=== PATIENT | male | born 1955 | race Caucasian/White ===

== ENCOUNTER 2019-05-19 13:38 | Inpatient (IN) | payer MEDICARE, MEDICAID ==
[~2019-05-19] VITALS: Ht 180.3 cm; Wt 90.9 kg
[2019-05-19] MEDS ORDERED: OMEP20 PO (14:02)
[2019-05-19] MEDS ORDERED: DIPH50CA35 PO (14:03)
[2019-05-19] MEDS ORDERED: BUSP5TAB20 PO (14:04)
[2019-05-19] MEDS ORDERED: DULO40CA2 PO (14:08)
[2019-05-19] MEDS ORDERED: HYD25 PO (14:08)
[2019-05-19] MEDS ORDERED: METO50 PO (14:08)
[2019-05-19] MEDS ORDERED: HYDROCODONE/ACETAMINOPHEN 5-325 MG TABLET PO ONE (14:15)
[2019-05-19] MEDS ORDERED: MORPHINE SULFATE 4 MG/ML SYRINGE IM ONE (16:45)
[2019-05-19 17:05] LABS: EOSINOPHILS % (AUTO) 2.8 % (1.0-6.0); HEMATOCRIT 33.5 % (41-53); HEMOGLOBIN 10.9 g/dL (13.5-17.5); LYMPHOCYTES % (AUTO) 23.1 % (22.0-44.0); MEAN CORPUSCULAR HEMOGLOBIN 28.1 pg (26.0-34.0); MEAN CORPUSCULAR HGB CONC 32.4 G/dL (31.0-37.0); MEAN CORPUSCULAR VOLUME 87 fL (80-100); MONOCYTES # (AUTO) 0.9 K/uL (0.1-1.0); NEUTROPHILS # (AUTO) 5.6 K/uL (1.8-7.7); NEUTROPHILS % (AUTO) 63.1 % (40.0-70.0); PLATELET COUNT (AUTO) 463 K/uL (150-450); RED BLOOD CELL COUNT(AUTO) 3.86 MIL/uL (4.50-5.90); RED CELL DISTRIBUTION WIDTH 17.6 % (11.5-14.5)
[2019-05-19 17:17] LABS: ANION GAP 11 mmol/L (8-16); CALCIUM, TOTAL 9.3 mg/dL (8.8-10.5); CARBON DIOXIDE 24 mmol/L (22-29); CHLORIDE 106 mmol/L (98-107); CREATININE 1.16 mg/dL (0.60-1.30); GLOMERULAR FILTR. RATE CALC > 60 mL/min (>60); GLUCOSE,RANDOM 99 mg/dL (70-110); POTASSIUM 4.6 mmol/L (3.5-5.1); SODIUM SERUM 141 mmol/L (136-145); UREA NITROGEN, BLOOD 15 mg/dL (7-18)
[2019-05-19 17:26] LABS: ALANINE AMINOTRANSFERASE 11 U/L (12-78); ALBUMIN 3.1 g/dL (3.4-5.0); ALKALINE PHOSPHATASE 78 U/L (46-116); ASPARTATE AMINOTRANSFERASE 13 U/L (15-37); BILIRUBIN,TOTAL 0.3 mg/dL (0.1-1.0); TOTAL PROTEIN, SERUM 7.5 g/dL (6.4-8.2)
[2019-05-19] MEDS ORDERED: ACETAMINOPHEN 325 MG TABLET PO PRN (17:30)
[2019-05-19] MEDS ORDERED: ONDANSETRON HCL 4 MG/2 ML VIAL IVP PRN (17:30)
[2019-05-19] MEDS ORDERED: MAGNESIUM HYDROXIDE SUSPENSION 30 ML UDCUP PO PRN (17:30)
[2019-05-19] MEDS ORDERED: DEXTROSE 5%-0.45% SODIUM CHL 1,000 ML IV ONE (17:30)
[2019-05-19 17:41] LABS: INR 1.1 (0.9-1.1); PROTHROMBIN TIME 10.9 SEC (9.4-11.6)
[2019-05-19] MEDS: MORPHINE SULFATE 2 MG/ML SYRINGE IVP PRN ×2 (18:43→22:33)
[2019-05-19 19:08] VITALS: BP 128/75
[2019-05-19] MEDS: DOCUSATE SODIUM 100 MG CAPSULE PO SCH (20:14)
[2019-05-19] MEDS: OxyCODONE HCL/ACETAMINOPHEN 5-325 MG TABLET PO PRN (20:17)
[2019-05-19 23:27] VITALS: BP 123/78
[2019-05-20] MEDS: OxyCODONE HCL/ACETAMINOPHEN 5-325 MG TABLET PO PRN ×3 (00:40→17:50)
[2019-05-20] MEDS: MORPHINE SULFATE 2 MG/ML SYRINGE IVP PRN ×4 (04:08→20:09)
[2019-05-20 04:16] VITALS: BP 165/75
[2019-05-20 07:40] VITALS: BP 133/90
[2019-05-20] MEDS: FAMOTIDINE 20 MG TABLET PO SCH (09:16)
[2019-05-20] MEDS: MULTIVITAMINS WITH MINERALS, THERAPEUTIC TABLET PO SCH (09:16)
[2019-05-20] MEDS: DOCUSATE SODIUM 100 MG CAPSULE PO SCH ×2 (09:16→20:05)
[2019-05-20 12:13] VITALS: BP 132/94
[2019-05-20 15:53] VITALS: BP 150/87
[2019-05-20 20:40] VITALS: BP 137/92
[2019-05-21] VITALS (7 sets, daily range): BP systolic 124–142; BP diastolic 78–93
[2019-05-21] MEDS: MORPHINE SULFATE 2 MG/ML SYRINGE IVP PRN (06:41)
[2019-05-21] MEDS: DOCUSATE SODIUM 100 MG CAPSULE PO SCH ×2 (07:36→19:57)
[2019-05-21] MEDS: MULTIVITAMINS WITH MINERALS, THERAPEUTIC TABLET PO SCH (07:36)
[2019-05-21] MEDS: FAMOTIDINE 20 MG TABLET PO SCH ×2 (07:36→19:56)
[2019-05-21 07:46] LABS: GLUCOMETER DEV NAME(LOC) 6N.2; GLUCOSE,POINT OF CARE 119 MG/DL (70-110)
[2019-05-21] MEDS ORDERED: VANCOMYCIN HCL 1 GM/VIAL ONE (10:13)
[2019-05-21] MEDS ORDERED: LIDOCAINE 1%/EPI 1:200,000/PF 30 ML VIAL ONE (10:13)
[2019-05-21] MEDS ORDERED: BUPIVACAINE HCL/PF 0.25% 30 ML VIAL ONE (10:13)
[2019-05-21] MEDS ORDERED: SODIUM CL IRRIG SOLN BAG 0 ML IRRIG ONE (10:14)
[2019-05-21] MEDS ORDERED: RINGERS SOLUTION,LACTATED 1,000 ML IV ONE ×2 (11:45→11:48)
[2019-05-21] MEDS ORDERED: BUPIVACAINE 0.25%/EPI 1:200,000/PF 10 ML VIAL ONE ×2 (11:58)
[2019-05-21] MEDS ORDERED: ROCURONIUM BROMIDE 10 MG/ML 5 ML VIAL IVP ONE (12:00)
[2019-05-21] MEDS ORDERED: PHENYLEPHRINE HCL 10 MG/ML VIAL IVP ONE (12:00)
[2019-05-21] MEDS ORDERED: PROPOFOL 1% 20 ML VIAL IVP ONE (12:00)
[2019-05-21] MEDS ORDERED: FentaNYL CITRATE-PF 100 MCG/2 ML VIAL IV ONE (12:00)
[2019-05-21] MEDS ORDERED: ACETAMINOPHEN 1000 MG/ISO-OSM 100 ML IV ONE (14:45)
[2019-05-21] MEDS ORDERED: MIDAZOLAM HCL 2 MG/2 ML VIAL IVP PRN (14:45)
[2019-05-21] MEDS ORDERED: HYDROmorphone 2 MG/ML SYRINGE IVP PRN ×2 (14:45)
[2019-05-21] MEDS ORDERED: MEPERIDINE-PF 25 MG/ML VIAL ONE (16:31)
[2019-05-21] MEDS ORDERED: SODIUM CHLORIDE 0.9% 1,000 ML ONE (16:32)
[2019-05-21] MEDS ORDERED: HYDROmorphone 2 MG/ML SYRINGE ONE (16:50)
[2019-05-21] MEDS: HYDROmorphone 2 MG/ML SYRINGE IVP PRN ×3 (16:52→17:45)
[2019-05-21] MEDS ORDERED: LORazepam 2 MG/ML VIAL ONE (16:55)
[2019-05-21] MEDS ORDERED: MEPERIDINE-PF 25 MG/ML VIAL IVP ONE (17:00)
[2019-05-21] MEDS ORDERED: LORazepam 2 MG/ML VIAL IM ONE (17:00)
[2019-05-21] MEDS ORDERED: FentaNYL CITRATE-PF 100 MCG/2 ML VIAL ONE (17:21)
[2019-05-21] MEDS: FentaNYL CITRATE-PF 100 MCG/2 ML VIAL IVP PRN ×2 (17:25→17:33)
[2019-05-21] MEDS ORDERED: LORazepam 2 MG/ML VIAL IVP ONE (17:30)
[2019-05-21] MEDS ORDERED: METOPROLOL TARTRATE 5 MG/5 ML VIAL IVP STA (18:07)
[2019-05-21] MEDS ORDERED: DiphenhydrAMINE HCL 50 MG/ML VIAL IVP STA (18:09)
[2019-05-21] MEDS ORDERED: METOPROLOL TARTRATE 5 MG/5 ML VIAL ONE (18:12)
[2019-05-21 18:13] LABS: GLUCOMETER DEV NAME(LOC) SDS.; GLUCOSE,POINT OF CARE 144 MG/DL (70-110)
[2019-05-21] MEDS ORDERED: DiphenhydrAMINE HCL 50 MG/ML VIAL ONE (18:15)
[2019-05-21 18:36] LABS: BASOPHILS % (AUTO) 0.6 % (0.0-2.0); EOSINOPHILS % (AUTO) 0.5 % (1.0-6.0); HEMOGLOBIN 11.5 g/dL (13.5-17.5); LYMPHOCYTES # (AUTO) 1.5 K/uL (1.0-4.8); LYMPHOCYTES % (AUTO) 11.3 % (22.0-44.0); MEAN CORPUSCULAR HEMOGLOBIN 27.7 pg (26.0-34.0); MEAN CORPUSCULAR HGB CONC 31.9 G/dL (31.0-37.0); MEAN CORPUSCULAR VOLUME 87 fL (80-100); MONOCYTES # (AUTO) 1.2 K/uL (0.1-1.0); MONOCYTES % (AUTO) 8.9 % (2.0-9.0); NEUTROPHILS # (AUTO) 10.5 K/uL (1.8-7.7); NEUTROPHILS % (AUTO) 78.7 % (40.0-70.0); PLATELET COUNT (AUTO) 598 K/uL (150-450); RED BLOOD CELL COUNT(AUTO) 4.14 MIL/uL (4.50-5.90); RED CELL DISTRIBUTION WIDTH 17.7 % (11.5-14.5)
[2019-05-21] MEDS ORDERED: DiphenhydrAMINE HCL 50 MG/ML VIAL IVP PRN (19:30)
[2019-05-21] MEDS ORDERED: BISACODYL 10 MG RECTAL RECTAL SUPPOSITORY PR PRN (19:30)
[2019-05-21] MEDS ORDERED: NALOXONE HCL 0.4 MG/ML VIAL IVP PRN (19:30)
[2019-05-21] MEDS ORDERED: ACETAMINOPHEN 325 MG TABLET PO PRN (19:30)
[2019-05-21] MEDS ORDERED: OxyCODONE HCL/ACETAMINOPHEN 5-325 MG TABLET PO PRN (19:30)
[2019-05-21] MEDS: OxyCODONE HCL/ACETAMINOPHEN 5-325 MG TABLET PO PRN ×2 (19:56→23:57)
[2019-05-21 20:54] LABS: CALCIUM, TOTAL 9.6 mg/dL (8.8-10.5); CREATININE 1.46 mg/dL (0.60-1.30); POTASSIUM 4.3 mmol/L (3.5-5.1)
[2019-05-21] MEDS ORDERED: SODIUM CHLORIDE 0.9% 1,000 ML IV ONE (23:45)
[2019-05-22] MEDS: IBUPROFEN 400 MG TABLET PO PRN ×2 (01:00→13:09)
[2019-05-22 05:11] VITALS: BP 137/83
[2019-05-22 07:31] VITALS: BP 143/82
[2019-05-22] MEDS: MULTIVITAMINS WITH MINERALS, THERAPEUTIC TABLET PO SCH ×2 (08:03→09:42)
[2019-05-22] MEDS: RIVAROXABAN 10 MG TABLET PO SCH (08:04)
[2019-05-22] MEDS: FAMOTIDINE 20 MG TABLET PO SCH ×2 (08:04→20:17)
[2019-05-22] MEDS: DOCUSATE SODIUM 100 MG CAPSULE PO SCH ×2 (08:04→20:17)
[2019-05-22] MEDS: ASCORBIC ACID 500 MG TABLET PO SCH (08:05)
[2019-05-22] MEDS: CALCIUM OYSTER SHELL 250 MG-VIT D3 125 UNITS TABLET PO SCH (08:05)
[2019-05-22] MEDS: OxyCODONE HCL/ACETAMINOPHEN 5-325 MG TABLET PO PRN ×3 (08:06→23:58)
[2019-05-22 11:07] VITALS: BP 131/86
[2019-05-22 15:27] VITALS: BP 126/86
[2019-05-22] MEDS: DULoxetine HCL 30 MG CAPSULE PO SCH (17:29)
[2019-05-22 19:35] VITALS: BP 142/80
[2019-05-22] MEDS: BusPIRone HCL 5 MG TABLET PO SCH (20:17)
[2019-05-22 23:34] VITALS: BP 137/86
[2019-05-23 05:10] VITALS: BP 149/91
[2019-05-23] MEDS: OxyCODONE HCL/ACETAMINOPHEN 5-325 MG TABLET PO PRN ×4 (05:24→19:47)
[2019-05-23 06:31] LABS: GLUCOMETER DEV NAME(LOC) 6S.1; GLUCOSE,POINT OF CARE 163 MG/DL (70-110)
[2019-05-23 07:42] VITALS: BP 133/84
[2019-05-23] MEDS: ASCORBIC ACID 500 MG TABLET PO SCH (08:42)
[2019-05-23] MEDS: MULTIVITAMINS WITH MINERALS, THERAPEUTIC TABLET PO SCH ×2 (08:42→09:00)
[2019-05-23] MEDS: BusPIRone HCL 5 MG TABLET PO SCH ×3 (08:42→19:47)
[2019-05-23] MEDS: FAMOTIDINE 20 MG TABLET PO SCH ×2 (08:43→19:47)
[2019-05-23] MEDS: DULoxetine HCL 30 MG CAPSULE PO SCH (08:43)
[2019-05-23] MEDS: DOCUSATE SODIUM 100 MG CAPSULE PO SCH ×2 (08:43→19:47)
[2019-05-23] MEDS: CALCIUM OYSTER SHELL 250 MG-VIT D3 125 UNITS TABLET PO SCH (08:48)
[2019-05-23 10:17] LABS: BASOPHILS % (AUTO) 0.9 % (0.0-2.0); EOSINOPHILS % (AUTO) 1.3 % (1.0-6.0); HEMATOCRIT 35.3 % (41-53); HEMOGLOBIN 11.5 g/dL (13.5-17.5); LYMPHOCYTES # (AUTO) 1.4 K/uL (1.0-4.8); LYMPHOCYTES % (AUTO) 12.2 % (22.0-44.0); MEAN CORPUSCULAR HGB CONC 32.5 G/dL (31.0-37.0); MEAN CORPUSCULAR VOLUME 86 fL (80-100); MONOCYTES # (AUTO) 1.4 K/uL (0.1-1.0); MONOCYTES % (AUTO) 12.2 % (2.0-9.0); NEUTROPHILS # (AUTO) 8.5 K/uL (1.8-7.7); NEUTROPHILS % (AUTO) 73.4 % (40.0-70.0); PLATELET COUNT (AUTO) 573 K/uL (150-450); RED CELL DISTRIBUTION WIDTH 17.2 % (11.5-14.5)
[2019-05-23 10:23] LABS: ANION GAP 12 mmol/L (8-16); CALCIUM, TOTAL 9.9 mg/dL (8.8-10.5); CARBON DIOXIDE 23 mmol/L (22-29); CHLORIDE 102 mmol/L (98-107); CREATININE 0.96 mg/dL (0.60-1.30); GLOMERULAR FILTR. RATE CALC > 60 mL/min (>60); GLUCOSE,RANDOM 170 mg/dL (70-110); POTASSIUM 5.2 mmol/L (3.5-5.1); SODIUM SERUM 137 mmol/L (136-145); UREA NITROGEN, BLOOD 24 mg/dL (7-18)
[2019-05-23 11:27] VITALS: BP 130/85
[2019-05-23 12:14] LABS: GLUCOMETER DEV NAME(LOC) 6S.1; GLUCOSE,POINT OF CARE 139 MG/DL (70-110)
[2019-05-23 15:09] VITALS: BP 136/89
[2019-05-23 15:54] LABS: APPEARANCE,URINE CLOUDY (CLEAR); BILIRUBIN,URINE NEGATIVE (NEGATIVE); GLUCOSE, URINE (UA) NEGATIVE (NEGATIVE); KETONES,URINE NEGATIVE (NEGATIVE); LEUKOCYTE ESTERASE ,URINE LARGE (NEGATIVE); OCCULT BLOOD,URINE LARGE (NEGATIVE); PROTEIN,URINE POS 1+ (NEGATIVE); UROBILINOGEN,URINE 0.2 mg/dL (<=1.0)
[2019-05-23 16:10] LABS: BACTERIA,URINE Many /HPF (None Seen); NITRATE,URINE POSITIVE (NEGATIVE); RBC,URINE 26-50 /HPF (0-2); SQUAMOUS EPITHELIAL CELL,UR Few /LPF (None Seen); WBC,URINE 51-100 /HPF (0-5)
[2019-05-23] MEDS: RIVAROXABAN 10 MG TABLET PO SCH (17:55)
[2019-05-23] MEDS: CefTRIAXone 1 GM/DEXTROSE 50 ML IV SCH (18:14)
[2019-05-23 18:39] LABS: GLUCOMETER DEV NAME(LOC) 6S.1; GLUCOSE,POINT OF CARE 137 MG/DL (70-110)
[2019-05-23 19:45] VITALS: BP 140/87
[2019-05-23 23:28] LABS: GLUCOMETER DEV NAME(LOC) 6S.1; GLUCOSE,POINT OF CARE 145 MG/DL (70-110)
[2019-05-24] VITALS (7 sets, daily range): BP systolic 118–135; BP diastolic 72–82
[2019-05-24] MEDS: OxyCODONE HCL/ACETAMINOPHEN 5-325 MG TABLET PO PRN ×3 (00:18→20:13)
[2019-05-24 06:53] LABS: GLUCOMETER DEV NAME(LOC) 6S.1; GLUCOSE,POINT OF CARE 148 MG/DL (70-110)
[2019-05-24] MEDS: ASCORBIC ACID 500 MG TABLET PO SCH (08:44)
[2019-05-24] MEDS: IBUPROFEN 400 MG TABLET PO PRN ×2 (08:44→17:01)
[2019-05-24] MEDS: DOCUSATE SODIUM 100 MG CAPSULE PO SCH ×2 (08:44→20:13)
[2019-05-24] MEDS: DULoxetine HCL 30 MG CAPSULE PO SCH (08:44)
[2019-05-24] MEDS: CALCIUM OYSTER SHELL 250 MG-VIT D3 125 UNITS TABLET PO SCH (08:44)
[2019-05-24] MEDS: BusPIRone HCL 5 MG TABLET PO SCH ×3 (08:44→20:13)
[2019-05-24] MEDS: MULTIVITAMINS WITH MINERALS, THERAPEUTIC TABLET PO SCH ×2 (08:44→08:45)
[2019-05-24] MEDS: FAMOTIDINE 20 MG TABLET PO SCH ×2 (08:44→20:13)
[2019-05-24 09:41] LABS: BASOPHILS % (AUTO) 0.6 % (0.0-2.0); HEMATOCRIT 34.3 % (41-53); HEMOGLOBIN 11.3 g/dL (13.5-17.5); LYMPHOCYTES # (AUTO) 1.3 K/uL (1.0-4.8); LYMPHOCYTES % (AUTO) 12.1 % (22.0-44.0); MEAN CORPUSCULAR HEMOGLOBIN 28.2 pg (26.0-34.0); MEAN CORPUSCULAR HGB CONC 32.9 G/dL (31.0-37.0); MEAN CORPUSCULAR VOLUME 86 fL (80-100); MONOCYTES # (AUTO) 0.9 K/uL (0.1-1.0); MONOCYTES % (AUTO) 8.4 % (2.0-9.0); NEUTROPHILS # (AUTO) 8.1 K/uL (1.8-7.7); NEUTROPHILS % (AUTO) 76.9 % (40.0-70.0); PLATELET COUNT (AUTO) 663 K/uL (150-450)
[2019-05-24 09:52] LABS: ANION GAP 11 mmol/L (8-16); CALCIUM, TOTAL 9.7 mg/dL (8.8-10.5); CARBON DIOXIDE 26 mmol/L (22-29); CHLORIDE 103 mmol/L (98-107); CREATININE 1.02 mg/dL (0.60-1.30); GLOMERULAR FILTR. RATE CALC > 60 mL/min (>60); GLUCOSE,RANDOM 135 mg/dL (70-110); POTASSIUM 4.7 mmol/L (3.5-5.1); SODIUM SERUM 140 mmol/L (136-145); UREA NITROGEN, BLOOD 22 mg/dL (7-18)
[2019-05-24] MEDS: RIVAROXABAN 10 MG TABLET PO SCH (16:58)
[2019-05-24] MEDS: CefTRIAXone 1 GM/DEXTROSE 50 ML IV SCH (16:58)
[2019-05-25 04:00] VITALS: BP 126/75
[2019-05-25] MEDS: OxyCODONE HCL/ACETAMINOPHEN 5-325 MG TABLET PO PRN ×3 (04:28→14:23)
[2019-05-25 08:08] VITALS: BP 120/79
[2019-05-25] MEDS: ASCORBIC ACID 500 MG TABLET PO SCH (08:12)
[2019-05-25] MEDS: BusPIRone HCL 5 MG TABLET PO SCH (08:13)
[2019-05-25] MEDS: DOCUSATE SODIUM 100 MG CAPSULE PO SCH (08:13)
[2019-05-25] MEDS: DULoxetine HCL 30 MG CAPSULE PO SCH (08:13)
[2019-05-25] MEDS: CALCIUM OYSTER SHELL 250 MG-VIT D3 125 UNITS TABLET PO SCH (08:13)
[2019-05-25] MEDS: MULTIVITAMINS WITH MINERALS, THERAPEUTIC TABLET PO SCH ×2 (08:13→09:00)
[2019-05-25] MEDS: FAMOTIDINE 20 MG TABLET PO SCH (08:13)
[2019-05-25 11:40] VITALS: BP 115/68
== END 2019-05-25 15:15 | DRG 493 ==
LOC: EMS 13:39 → 6N 17:31
PROVIDERS: ADMIT Internal Medicine; ATTEND Internal Medicine
PROC: 0PSG04Z Reposition Left Humeral Shaft with Internal Fixation Device, Open Approach (ICD-10-PCS; principal; 2019-05-21 13:00)
DX: S42.232A 3-part fracture of surgical neck of left humerus, initial encounter for closed fracture (principal); N39.0 Urinary tract infection, site not specified; S42.302A Unspecified fracture of shaft of humerus, left arm, initial encounter for closed fracture; N13.9 Obstructive and reflux uropathy, unspecified; F80.82 Social pragmatic communication disorder; W18.39XA Other fall on same level, initial encounter; F29 Unspecified psychosis not due to a substance or known physiological condition; I10 Essential (primary) hypertension; J44.9 Chronic obstructive pulmonary disease, unspecified; E11.40 Type 2 diabetes mellitus with diabetic neuropathy, unspecified; Z93.3 Colostomy status; Z82.49 Family history of ischemic heart disease and other diseases of the circulatory system; Y93.89 Activity, other specified; Y92.89 Other specified places as the place of occurrence of the external cause; Y99.8 Other external cause status
CPT/HCPCS: 73200; 83036; 87081; 87086; 93005; 97116; 97162; 97166; 97167; 97530; 97535; J0690; J0696; J1170; J1200; J2060; J2175; J2270; J2370; J2704; J3010; J3370; J3490; J7030; J7120

== ENCOUNTER 2019-10-18 20:39 | Emergency (ER) | payer MEDICARE, MEDICAID ==
[~2019-10-18] VITALS: Ht 180.3 cm; Wt 79.5 kg
[~2019-10-18 20:39] MED LIST: BUSP5TAB20 PO; DIPH50CA35 PO; DULO40CA2 PO; HYD25 PO; METO50 PO; OMEP20 PO
[2019-10-18 21:02] LABS: GLUCOSE,POINT OF CARE 117 MG/DL (70-110)
[2019-10-18 21:51] LABS: ANION GAP 12 mmol/L (8-16); CALCIUM, TOTAL 9.4 mg/dL (8.8-10.5); CARBON DIOXIDE 23 mmol/L (22-29); CHLORIDE 102 mmol/L (98-107); CREATININE 1.53 mg/dL (0.60-1.30); GLOMERULAR FILTR. RATE CALC 46 mL/min (>60); GLUCOSE,RANDOM 126 mg/dL (70-110); POTASSIUM 3.8 mmol/L (3.5-5.1); SODIUM SERUM 137 mmol/L (136-145); UREA NITROGEN, BLOOD 13 mg/dL (7-18)
[2019-10-18 21:57] LABS: ALANINE AMINOTRANSFERASE 24 U/L (12-78); ALBUMIN 3.5 g/dL (3.4-5.0); ALKALINE PHOSPHATASE 65 U/L (46-116); ASPARTATE AMINOTRANSFERASE 19 U/L (15-37); BILIRUBIN,TOTAL 0.6 mg/dL (0.1-1.0); TOTAL PROTEIN, SERUM 7.3 g/dL (6.4-8.2)
[2019-10-18 22:19] LABS: BASOPHILS % (AUTO) 0.4 % (0.0-2.0); EOSINOPHILS % (AUTO) 1.4 % (1.0-6.0); HEMATOCRIT 38.9 % (41-53); HEMOGLOBIN 12.6 g/dL (13.5-17.5); LYMPHOCYTES # (AUTO) 1.8 K/uL (1.0-4.8); MEAN CORPUSCULAR HEMOGLOBIN 29.7 pg (26.0-34.0); MEAN CORPUSCULAR HGB CONC 32.5 G/dL (31.0-37.0); MEAN CORPUSCULAR VOLUME 91 fL (80-100); MONOCYTES # (AUTO) 0.8 K/uL (0.1-1.0); MONOCYTES % (AUTO) 10.3 % (2.0-9.0); NEUTROPHILS # (AUTO) 4.8 K/uL (1.8-7.7); NEUTROPHILS % (AUTO) 63.9 % (40.0-70.0); PLATELET COUNT (AUTO) 239 K/uL (150-450); RED BLOOD CELL COUNT(AUTO) 4.26 MIL/uL (4.50-5.90); RED CELL DISTRIBUTION WIDTH 17.9 % (11.5-14.5)
[2019-10-18 22:32] LABS: AMPHET/METH SCREEN,URINE NEGATIVE (NEGATIVE); BARBITURATE SCREEN, URINE NEGATIVE (NEGATIVE); BENZODIAZEPINES SCREEN,URINE NEGATIVE (NEGATIVE); CANNABINOID SCREEN,URINE POSITIVE (NEGATIVE); COCAINE SCREEN,URINE NEGATIVE (NEGATIVE); METHADONE SCREEN, URINE NEGATIVE (NEGATIVE); OPIATE SCREEN,URINE NEGATIVE (NEGATIVE)
[2019-10-18 22:34] LABS: PHENCYCLIDINE SCREEN,URINE NEGATIVE (NEGATIVE)
[2019-10-18 23:00] LABS: SALICYLATE 6.5 mg/dL (2.8-20.0)
[2019-10-18 23:48] LABS: ACETAMINOPHEN < 2 mcg/mL (10-30)
[2019-10-19] MEDS ORDERED: LORazepam 1 MG TABLET PO ONE (01:30)
[2019-10-19] MEDS ORDERED: QUEtiapine FUMARATE 100 MG TABLET PO PRN (03:15)
[2019-10-19] MEDS ORDERED: ZOLPIDEM TARTRATE 10 MG TABLET PO PRN (03:15)
[2019-10-19] MEDS ORDERED: LORazepam 2 MG TABLET PO PRN (03:15)
[2019-10-19 09:08] LABS: GLUCOSE,POINT OF CARE 130 MG/DL (70-110)
[2019-10-19 18:50] VITALS: BP 135/74
== END 2019-10-19 20:37 | disposition short-term general hospital (02) ==
LOC: EMS 20:39
DX: R45.851 Suicidal ideations (principal); I10 Essential (primary) hypertension; E11.9 Type 2 diabetes mellitus without complications; J44.9 Chronic obstructive pulmonary disease, unspecified; Z88.8 Allergy status to other drugs, medicaments and biological substances; Z79.899 Other long term (current) drug therapy; Z20.828 Contact with and (suspected) exposure to other viral communicable diseases
CPT/HCPCS: 36415; 80053; 80307; 82962; 85025; 87426; 99285; G0480; G0481

== ENCOUNTER 2019-10-27 11:33 | Emergency (ER) | payer MEDICARE, OTHER ==
[~2019-10-27] VITALS: Ht 185.4 cm; Wt 79.5 kg
[2019-10-27 12:29] LABS: BASOPHILS % (AUTO) 0.5 % (0.0-2.0); EOSINOPHILS % (AUTO) 0.6 % (1.0-6.0); HEMATOCRIT 38.1 % (41-53); HEMOGLOBIN 12.7 g/dL (13.5-17.5); LYMPHOCYTES # (AUTO) 1.5 K/uL (1.0-4.8); LYMPHOCYTES % (AUTO) 20.9 % (22.0-44.0); MEAN CORPUSCULAR HEMOGLOBIN 30.5 pg (26.0-34.0); MEAN CORPUSCULAR HGB CONC 33.5 G/dL (31.0-37.0); MEAN CORPUSCULAR VOLUME 91 fL (80-100); MONOCYTES # (AUTO) 0.5 K/uL (0.1-1.0); MONOCYTES % (AUTO) 7.4 % (2.0-9.0); NEUTROPHILS # (AUTO) 5.1 K/uL (1.8-7.7); NEUTROPHILS % (AUTO) 70.6 % (40.0-70.0); PLATELET COUNT (AUTO) 454 K/uL (150-450); RED BLOOD CELL COUNT(AUTO) 4.17 MIL/uL (4.50-5.90); RED CELL DISTRIBUTION WIDTH 17.6 % (11.5-14.5)
[2019-10-27 12:37] LABS: ANION GAP 14 mmol/L (8-16); CALCIUM, TOTAL 9.1 mg/dL (8.8-10.5); CARBON DIOXIDE 21 mmol/L (22-29); CHLORIDE 102 mmol/L (98-107); CREATININE 1.11 mg/dL (0.60-1.30); GLOMERULAR FILTR. RATE CALC > 60 mL/min (>60); GLUCOSE,RANDOM 95 mg/dL (70-110); POTASSIUM 3.6 mmol/L (3.5-5.1); SODIUM SERUM 137 mmol/L (136-145); UREA NITROGEN, BLOOD 14 mg/dL (7-18)
[2019-10-27 12:46] LABS: ALANINE AMINOTRANSFERASE 21 U/L (12-78); ALBUMIN 3.5 g/dL (3.4-5.0); ALKALINE PHOSPHATASE 59 U/L (46-116); ASPARTATE AMINOTRANSFERASE 15 U/L (15-37); BILIRUBIN,TOTAL 0.6 mg/dL (0.1-1.0); TOTAL PROTEIN, SERUM 7.4 g/dL (6.4-8.2)
[2019-10-27 16:00] VITALS: BP 126/71
== END 2019-10-27 16:28 | disposition home or self-care (01) ==
LOC: EMS 11:36
DX: F31.9 Bipolar disorder, unspecified (principal); E11.9 Type 2 diabetes mellitus without complications; I10 Essential (primary) hypertension; J44.9 Chronic obstructive pulmonary disease, unspecified; Z79.899 Other long term (current) drug therapy
CPT/HCPCS: 36415; 80053; 85025; 99284; G0480

== ENCOUNTER 2019-11-16 18:16 | Inpatient (IN) | payer MEDICARE, MEDICAID ==
[~2019-11-16] VITALS: Ht 180.3 cm; Wt 79.1 kg
[2019-11-16] MEDS ORDERED: MECL-169 PO (20:27)
[2019-11-16] MEDS ORDERED: IBUP-1506 PO (20:27)
[2019-11-16] MEDS ORDERED: ZOLP-280 PO (20:27)
[2019-11-16] MEDS ORDERED: CLOB60CR4 TP (20:27)
[2019-11-16] MEDS ORDERED: QUET200T5 PO (20:27)
[2019-11-16] MEDS ORDERED: HYDR50CA9 PO (20:27)
[2019-11-16] MEDS ORDERED: LEVO25TA9 PO (20:27)
[2019-11-16 20:43] LABS: BASOPHILS % (AUTO) 0.5 % (0.0-2.0); EOSINOPHILS % (AUTO) 0.8 % (1.0-6.0); HEMATOCRIT 36.9 % (41-53); HEMOGLOBIN 12.2 g/dL (13.5-17.5); LYMPHOCYTES # (AUTO) 1.1 K/uL (1.0-4.8); LYMPHOCYTES % (AUTO) 13.3 % (22.0-44.0); MEAN CORPUSCULAR HEMOGLOBIN 30.3 pg (26.0-34.0); MEAN CORPUSCULAR HGB CONC 33.1 G/dL (31.0-37.0); MEAN CORPUSCULAR VOLUME 92 fL (80-100); MONOCYTES # (AUTO) 0.8 K/uL (0.1-1.0); MONOCYTES % (AUTO) 9.5 % (2.0-9.0); NEUTROPHILS # (AUTO) 6.1 K/uL (1.8-7.7); NEUTROPHILS % (AUTO) 75.9 % (40.0-70.0); PLATELET COUNT (AUTO) 316 K/uL (150-450); RED BLOOD CELL COUNT(AUTO) 4.02 MIL/uL (4.50-5.90); RED CELL DISTRIBUTION WIDTH 17.9 % (11.5-14.5)
[2019-11-16 20:53] LABS: ANION GAP 0 mmol/L (8-16); CALCIUM, TOTAL 8.8 mg/dL (8.8-10.5); CARBON DIOXIDE 25 mmol/L (22-29); CHLORIDE 106 mmol/L (98-107); CREATININE 1.15 mg/dL (0.60-1.30); GLOMERULAR FILTR. RATE CALC > 60 mL/min (>60); GLUCOSE,RANDOM 105 mg/dL (70-110); POTASSIUM 3.5 mmol/L (3.5-5.1); SODIUM SERUM 131 mmol/L (136-145); UREA NITROGEN, BLOOD 10 mg/dL (7-18)
[2019-11-16 20:58] LABS: ALANINE AMINOTRANSFERASE 43 U/L (12-78); ALBUMIN 3.1 g/dL (3.4-5.0); ALKALINE PHOSPHATASE 64 U/L (46-116); ASPARTATE AMINOTRANSFERASE 38 U/L (15-37); BILIRUBIN,TOTAL 0.6 mg/dL (0.1-1.0); TOTAL PROTEIN, SERUM 6.4 g/dL (6.4-8.2)
[2019-11-16 22:12] LABS: COVID AG,FIA SOURCE NASOPHARYNGEAL
[2019-11-16] MEDS ORDERED: LORazepam 2 MG TABLET PO PRN (22:15)
[2019-11-16] MEDS ORDERED: QUEtiapine FUMARATE 100 MG TABLET PO PRN (22:15)
[2019-11-16] MEDS ORDERED: CloNIDine HCL 0.1 MG TABLET PO PRN (23:15)
[2019-11-16] MEDS ORDERED: MAGNESIUM HYDROXIDE SUSPENSION 30 ML UDCUP PO PRN (23:15)
[2019-11-16] MEDS ORDERED: ACETAMINOPHEN 325 MG TABLET PO PRN (23:15)
[2019-11-16] MEDS ORDERED: ONDANSETRON HCL 4 MG TABLET PO PRN (23:15)
[2019-11-16] MEDS ORDERED: PETROLATUM,WHITE 28 GM JELLY TP PRN (23:15)
[2019-11-16] MEDS ORDERED: MAG HYDROX/AL HYDROX/SIMETH ES 30 ML SUSPENSION UDCUP PO PRN (23:15)
[2019-11-16] MEDS ORDERED: GuaiFENesin/D-METHORPHAN [SUGAR-FREE] 200-20MG/10 ML SYRUP UDCUP PO PRN (23:15)
[2019-11-16] MEDS ORDERED: IBUPROFEN 400 MG TABLET PO PRN (23:15)
[2019-11-16] MEDS ORDERED: ALBUTEROL SULFATE HFA 90 MCG/PUFF 8 GM INHALER IH PRN (23:15)
[2019-11-16] MEDS ORDERED: NICOTINE 14 MG/24 HOUR PATCH TD PRN (23:15)
[2019-11-16] MEDS ORDERED: DOCUSATE SODIUM 100 MG CAPSULE PO PRN (23:15)
[2019-11-16] MEDS ORDERED: LOPERAMIDE HCL 2 MG CAPSULE PO PRN (23:15)
[2019-11-17] MEDS: ZOLPIDEM TARTRATE 10 MG TABLET PO PRN (00:41)
[2019-11-17 00:57] VITALS: BP 112/70
[2019-11-17] MEDS ORDERED: INFLUENZA VIRUS VACCINE QVS 2020-21 (6MO+)/PF 60 MCG/0.5 ML SYRINGE IM ONE (01:30)
[2019-11-17 06:11] LABS: GLUCOMETER DEV NAME(LOC) 3E.I 2; GLUCOSE,POINT OF CARE 114 MG/DL (70-110)
[2019-11-17] MEDS: LEVOTHYROXINE SODIUM 25 MCG TABLET PO SCH (06:49)
[2019-11-17 07:15] LABS: CHOL/HDL RATIO 3.2 (4.2-7.3)
[2019-11-17] MEDS ORDERED: POTASSIUM CHLORIDE 20 MEQ ER TABLET PO ONE (09:00)
[2019-11-17] MEDS: MECLIZINE HCL 25 MG TABLET PO SCH ×2 (09:14→16:31)
[2019-11-17 09:33] VITALS: BP 120/79
[2019-11-17 16:16] VITALS: BP 119/70
[2019-11-17] MEDS: SODIUM CHLORIDE 1 GM TABLET PO SCH (16:30)
[2019-11-17] MEDS: BusPIRone HCL 5 MG TABLET PO SCH (16:31)
[2019-11-17] MEDS: QUEtiapine FUMARATE 200 MG ER TABLET PO SCH (21:01)
[2019-11-18 02:49] VITALS: BP 137/74
[2019-11-18] MEDS: LEVOTHYROXINE SODIUM 25 MCG TABLET PO SCH (06:53)
[2019-11-18] MEDS: MULTIVITAMINS WITH MINERALS, THERAPEUTIC TABLET PO SCH (08:45)
[2019-11-18] MEDS: DULoxetine HCL 60 MG CAPSULE PO SCH (08:45)
[2019-11-18] MEDS: MECLIZINE HCL 25 MG TABLET PO SCH ×2 (08:45→16:13)
[2019-11-18] MEDS: BusPIRone HCL 5 MG TABLET PO SCH ×3 (08:45→16:13)
[2019-11-18] MEDS: SODIUM CHLORIDE 1 GM TABLET PO SCH ×2 (08:45→16:13)
[2019-11-18 09:05] VITALS: BP 87/56
[2019-11-18 16:22] VITALS: BP 118/69
[2019-11-18] MEDS: CLOBETASOL 0.05% 60 GM CREAM TP PRN (19:53)
[2019-11-18] MEDS: QUEtiapine FUMARATE 200 MG ER TABLET PO SCH (20:05)
[2019-11-18] MEDS: ZOLPIDEM TARTRATE 10 MG TABLET PO PRN (20:32)
[2019-11-19 03:39] VITALS: BP 111/84
[2019-11-19] MEDS: LEVOTHYROXINE SODIUM 25 MCG TABLET PO SCH (06:36)
[2019-11-19 08:35] VITALS: BP 101/54
[2019-11-19] MEDS: SODIUM CHLORIDE 1 GM TABLET PO SCH (09:32)
[2019-11-19] MEDS: MULTIVITAMINS WITH MINERALS, THERAPEUTIC TABLET PO SCH (09:32)
[2019-11-19] MEDS: MECLIZINE HCL 25 MG TABLET PO SCH ×2 (09:32→16:32)
[2019-11-19] MEDS: BusPIRone HCL 5 MG TABLET PO SCH ×3 (09:32→16:32)
[2019-11-19] MEDS: DULoxetine HCL 60 MG CAPSULE PO SCH (09:32)
[2019-11-19 17:02] VITALS: BP 133/80
[2019-11-19] MEDS: CLOBETASOL 0.05% 60 GM CREAM TP PRN (18:08)
[2019-11-19] MEDS: QUEtiapine FUMARATE 200 MG ER TABLET PO SCH (20:05)
[2019-11-19] MEDS: ZOLPIDEM TARTRATE 10 MG TABLET PO PRN (21:03)
[2019-11-20] MEDS: LEVOTHYROXINE SODIUM 25 MCG TABLET PO SCH (07:00)
[2019-11-20 08:32] VITALS: BP 111/73
[2019-11-20] MEDS: DULoxetine HCL 60 MG CAPSULE PO SCH (08:44)
[2019-11-20] MEDS: MULTIVITAMINS WITH MINERALS, THERAPEUTIC TABLET PO SCH (08:44)
[2019-11-20] MEDS: BusPIRone HCL 5 MG TABLET PO SCH ×3 (08:44→16:29)
[2019-11-20] MEDS: MECLIZINE HCL 25 MG TABLET PO SCH ×2 (08:45→16:29)
[2019-11-20 16:07] VITALS: BP_SYST 114; BP_DIAS 73; BP_DIAS 78
[2019-11-20] MEDS: CLOBETASOL 0.05% 60 GM CREAM TP PRN (16:34)
[2019-11-20] MEDS: QUEtiapine FUMARATE 200 MG ER TABLET PO SCH (20:43)
[2019-11-20] MEDS: ZOLPIDEM TARTRATE 10 MG TABLET PO PRN (21:03)
[2019-11-21 04:19] VITALS: BP 122/70
[2019-11-21] MEDS: LEVOTHYROXINE SODIUM 25 MCG TABLET PO SCH (06:42)
[2019-11-21] MEDS: MECLIZINE HCL 25 MG TABLET PO SCH ×2 (08:24→16:45)
[2019-11-21] MEDS: MULTIVITAMINS WITH MINERALS, THERAPEUTIC TABLET PO SCH (08:25)
[2019-11-21] MEDS: DULoxetine HCL 30 MG CAPSULE PO SCH (08:25)
[2019-11-21] MEDS: BusPIRone HCL 5 MG TABLET PO SCH ×3 (08:25→16:45)
[2019-11-21 10:05] VITALS: BP 107/63
[2019-11-21 16:00] VITALS: BP 122/59
[2019-11-21] MEDS: QUEtiapine FUMARATE 200 MG ER TABLET PO SCH (20:12)
[2019-11-21] MEDS: ZOLPIDEM TARTRATE 10 MG TABLET PO PRN (21:01)
[2019-11-22] MEDS: LEVOTHYROXINE SODIUM 25 MCG TABLET PO SCH (06:23)
[2019-11-22 08:00] VITALS: BP 113/72
[2019-11-22] MEDS: MULTIVITAMINS WITH MINERALS, THERAPEUTIC TABLET PO SCH (10:07)
[2019-11-22] MEDS: DULoxetine HCL 30 MG CAPSULE PO SCH (10:07)
[2019-11-22] MEDS: MECLIZINE HCL 25 MG TABLET PO SCH ×2 (10:07→16:26)
[2019-11-22] MEDS: CLOBETASOL 0.05% 60 GM CREAM TP PRN (10:07)
[2019-11-22] MEDS: BusPIRone HCL 5 MG TABLET PO SCH ×3 (10:07→16:26)
[2019-11-22] MEDS ORDERED: QUET200T5 PO (12:36)
[2019-11-22] MEDS ORDERED: DULO30CA96 PO (12:36)
[2019-11-22] MEDS ORDERED: BUSP5TAB20 PO (12:36)
[2019-11-22] MEDS ORDERED: LEVO25TA9 PO ×2 (13:06→13:09)
[2019-11-22] MEDS ORDERED: MECL-160 PO ×2 (13:07→13:08)
[2019-11-22 16:33] VITALS: BP 100/62
== END 2019-11-22 17:45 | disposition home or self-care (01) | DRG 885 ==
LOC: EMS 18:17 → 3EI 22:06 → UNDOADMIN 22:40
DX: F25.1 Schizoaffective disorder, depressive type (principal); Z93.3 Colostomy status; E87.1 Hypo-osmolality and hyponatremia; K59.2 Neurogenic bowel, not elsewhere classified; R45.851 Suicidal ideations; E03.9 Hypothyroidism, unspecified; E11.40 Type 2 diabetes mellitus with diabetic neuropathy, unspecified; F41.9 Anxiety disorder, unspecified; I10 Essential (primary) hypertension; J44.9 Chronic obstructive pulmonary disease, unspecified; N31.9 Neuromuscular dysfunction of bladder, unspecified; Z79.899 Other long term (current) drug therapy; Z86.61 Personal history of infections of the central nervous system; Z87.891 Personal history of nicotine dependence; Z91.5 Personal history of self-harm; Z23 Encounter for immunization; Z03.818 Encounter for observation for suspected exposure to other biological agents ruled out
CPT/HCPCS: 83036; 84132; 87426; 90686; G0480; Q0162